=== PATIENT | male | born 1955 | race Caucasian/White ===

== ENCOUNTER 2016-08-24 06:45 | Emergency (ER) | payer BC ==
[2016-08-24] MEDS ORDERED: Tetanus/Diphtheria Toxoids 0.5 ml Syringe IM ONE ×2 (07:22→07:30)
[2016-08-24] MEDS ORDERED: Naproxen 550 mg Tab PO STA (07:31)
[2016-08-24 07:34] VITALS: RESP 17
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
[2016-08-24] MEDS ORDERED: Naproxen 550 mg Tab PO ONE (08:00)
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
[2016-08-24 09:14] VITALS: BP 126/77; PULSE 69; TEMP 98
[2016-08-29 10:19] VITALS: O2SAT 97
== END 2016-08-24 09:46 | disposition home or self-care (01) ==
LOC: C.ER 06:45
DX: S83.91XA Sprain of unspecified site of right knee, initial encounter (principal); S63.91XA Sprain of unspecified part of right wrist and hand, initial encounter; S73.101A Unspecified sprain of right hip, initial encounter; V03.10XA Pedestrian on foot injured in collision with car, pick-up truck or van in traffic accident, initial encounter; Y92.410 Unspecified street and highway as the place of occurrence of the external cause